=== PATIENT | female | born 1980 | race African-American/Black ===

== ENCOUNTER 2017-07-19 18:24 | Emergency (ER) | payer OTHER ==
[~2017-07-19] VITALS: Ht 167.6 cm; Wt 114.5 kg
[2017-07-19] MEDS ORDERED: IBUPROFEN 800 MG TABLET PO ONE (19:15)
[2017-07-19 19:19] VITALS: BP 134/78
== END 2017-07-19 20:14 | disposition home or self-care (01) ==
LOC: EMS 18:24
DX: M25.521 Pain in right elbow (principal); M79.89 Other specified soft tissue disorders
CPT/HCPCS: 99284